=== PATIENT | female | born 1985 | race Caucasian/White ===

== ENCOUNTER 2019-05-28 10:38 | Outpatient (CLI) | payer MEDICAID ==
[~2019-05-28 10:38] MED LIST: HYDR-4383 PO
== END 2019-05-28 23:59 | disposition home or self-care (01) ==
LOC: CARD DIAG 10:38
PROVIDERS: ATTEND Internal Medicine Interventional Cardiology
DX: R55 Syncope and collapse (principal)
CPT/HCPCS: 93660